=== PATIENT | female | born 1995 | race Caucasian/White ===

== ENCOUNTER 2017-12-26 09:58 | Outpatient (CLI) | payer OTHER ==
--- NOTE | 2017-12-26 14:11 | MRI ---
BRAIN AND PITUITARY GLAND MRI WITH AND WITHOUT CONTRAST: HISTORY: Hyperprolactinemia. COMPARISON: 12/19/2016 TECHNIQUE: A brain MRI is performed with and without intravenous Gadolinium administration. Multisequential, mu ltiplanar imaging is performed. FINDINGS: No parenchymal mass, mass effect, or midline shift. Brain volume is age appropriate. Cortical robles white matter differentiation is preserved. The ventricles and sulci are patent and symmetric. Central arterial flow voids are maintained. Absent restricted diffusion. No significant T2 or FLAIR white matter hyperintensities. The calvarium has a normal T1 marrow signal intensity. Midline brain parenchymal structures are unre markable. Adequate aeration of the sinuses and mastoid air cells. No pathologic enhancement of the brain parenchyma. There is fullness of the pituitary gland with a convexed border. No significant mass effect upon the optic chiasm or prechiasmatic optic nerves. The pituitary stalk is midline. Fullness of the pituit samson gland is presumed to be age appropriate. There are no discrete microadenoma or macroadenoma note d. On the post-contrast images, enhancement is homogeneous. IMPRESSION: Unremarkable pituitary gland MRI. No MRI evidence of a microadenoma or macroadenoma. Convexed borde r along the superior margin of the pituitary gland is felt to be age appropriate. POS: OFF
== END 2017-12-26 09:59 | disposition home or self-care (01) ==
LOC: MRI 09:58
PROVIDERS: ATTEND Internal Medicine
DX: E22.1 Hyperprolactinemia (principal)
CPT/HCPCS: 70553